=== PATIENT | male | born 1975 | race Caucasian/White ===

== ENCOUNTER 2016-09-10 04:27 | Emergency (ER) | payer SELFPAY ==
[~2016-09-10] VITALS: Ht 185.4 cm; Wt 152.9 kg
[2016-09-10 04:31] VITALS: BP 137/88
[2016-09-10] MEDS ORDERED: LITHIUM CARBON300 M2 PO (04:47)
[2016-09-10] MEDS ORDERED: FUROSEMIDE80 MG PO (04:48)
[2016-09-10] MEDS ORDERED: DIVALPROEX SOD500 M1 PO (04:49)
[2016-09-10] MEDS ORDERED: DIVALPROEX SOD250 M1 PO (04:49)
[2016-09-10] MEDS ORDERED: XARELTO20 MG PO (04:50)
[2016-09-10] MEDS ORDERED: QUETIAPINE FUM100 MG PO (04:52)
[2016-09-10 05:35] LABS: CHLORIDE 102 mEq/L (99-109); SODIUM 139 mEq/L (136-147)
[2016-09-10 05:37] LABS: GLUCOSE 101 mg/dL (70-99)
[2016-09-10 05:38] LABS: ANION GAP 8 MEQ/L (2-14)
[2016-09-10 05:40] LABS: SERUM ETHYL ALCOHOL < 10 mg/dL
[2016-09-10 05:42] LABS: GFR ESTIMATE (CALCULATED) > 59 mL/min/; HEMATOCRIT 44.6 % (38.0-50.0); MCH 29.1 PG (29.0-34.0); MCHC 32.7 G/DL (30.0-36.0); MCV 88.8 FL (86-99); MEAN PLAT.VOLUME 11.3 uM^3 (9.0-12.4); PLATELET COUNT 309 K/uL (156-360); RBC DIS.WIDTH-CV 13.4 % (11.8-14.6); RBC DIS.WIDTH-SD 43.5 % (39-53); RED BLOOD COUNT 5.02 M/uL (4.00-5.50); UREA NITROGEN (BUN) 11 mg/dL (9-23); WHITE BLOOD COUNT 13.7 K/uL (4.1-10.2)
== END 2016-09-10 05:38 | disposition left against medical advice (07) ==
LOC: EME 04:27
PROVIDERS: Emergency Medicine
DX: F31.9 Bipolar disorder, unspecified (principal); F10.10 Alcohol abuse, uncomplicated; Z73.3 Stress, not elsewhere classified; R44.0 Auditory hallucinations; R44.1 Visual hallucinations; F17.200 Nicotine dependence, unspecified, uncomplicated
CPT/HCPCS: 80048; 81003; 85027; 99281; 99283; G0480